=== PATIENT | male | born 1960 | race Caucasian/White ===

== ENCOUNTER 2017-01-22 08:22 | Day surgery (SDC) | payer BC ==
[2017-01-21 13:39] LABS: BASOPHILS 0.5 %; BASOPHILS ABSOLUTE 0.03 10/3/uL (0.0-0.16); EOSINOPHILS 6.2 %; EOSINOPHILS ABSOLUTE 0.34 10/3/uL (0.0-0.53); HEMATOCRIT 43.8 % (40.0-51.0); HEMOGLOBIN 14.8 g/dL (13.6-17.8); IMMATURE GRANULOCYTES 0.2 %; IMMATURE GRANULOCYTES ABSOLUTE 0.01 10/3/uL (0.0-0.11); LYMPHOCYTES 35.7 %; LYMPHOCYTES ABSOLUTE 1.96 10/3/uL (0.67-4.30); MEAN CORPUS HGB CONC 33.8 g/dL (32.0-36.0); MEAN CORPUSCULAR HEMOGLOB 32.8 pg (26.0-34.0); MEAN CORPUSCULAR VOLUME 97.1 fL (80-100); MEAN PLATELET VOLUME 9.3 fL (9.2-13.0); MONOCYTES 16.8 %; MONOCYTES ABSOLUTE 0.92 10/3/uL (0.21-1.20); NEUTROPHILS 40.6 %; NEUTROPHILS ABSOLUTE 2.23 10/3/uL (2.02-8.40); PLATELET COUNT 277 10/3/uL (150-400); RBC DISTRIBUTION WIDTH 12.9 % (12.0-16.0); RED CELL COUNT 4.51 10/6/uL (4.7-6.1); WHITE BLOOD CELLS 5.5 10/3/uL (4.5-10.5)
[2017-01-21 13:40] LABS: MANUAL DIFF NO %
[2017-01-21 13:44] LABS: PARTIAL THROMBO TIME 29.8 SEC (22.5-37.2); PROTIME (NOT ORD) 12.9 SEC (12.0-14.5)
[2017-01-21 13:56] LABS: A/G RATIO 1.1 (0.7-1.9); ALBUMIN 3.7 G/DL (3.5-5.0); BUN (BLOOD UREA NITROGEN) 15 MG/DL (6-23); CALCIUM, SERUM 8.7 MG/DL (8.5-10.4); CHLORIDE, SERUM 105 MMOL/L (96-112); CO2 (CARBON DIOXIDE) 29 MMOL/L (24-34); CREATININE 0.97 MG/DL (0.70-1.30); GFR AFRICAN AMERICAN 99 ML/MIN (>=60); GFR NON AFRICAN AMERICAN 86 ML/MIN (>=60); GLOBULIN 3.4 G/DL (2.5-4.1); GLUCOSE, SERUM 100 MG/DL (60-99); POTASSIUM, SERUM 5.1 MMOL/L (3.5-5.3); SGOT(AST) 28 U/L (5-40); SGPT(ALT) 51 U/L (5-65); SODIUM, SERUM 143 MMOL/L (135-148); TOTAL PROTEIN 7.1 G/DL (6.0-8.5)
[2017-01-21 13:57] LABS: ALKALINE PHOSPHATASE 123 U/L (45-117); TOTAL BILIRUBIN 0.4 MG/DL (0-1.2)
--- NOTE | ~2017-01-22 | OP ---
Record Of Operation [facility] [address] [place]. [address] NAME: STEPHY KO : 58 STATUS : [facility]#: [id number] AGE: 57 ADM/REG DATE : 01/22/17 MR#: [id number] REPORT SERV DATE: 01/22/17 DICTATED BY: NARINDER NICHOLS III DATE: 01/22/17 REPORT STATUS : Draft TRANSCRIBED BY: MODMitesh DATE: 01/22/17 DATE OF PROCEDURE: 01/22/2017 PREOPERATIVE DIAGNOSIS: Large inguinoscrotal hernia on the left side, which was incarcerated, but not strangulated. POSTOPERATIVE DIAGNOSIS: Large inguinoscrotal hernia on the left side, which was incarcerated, but not strangulated plus the finding of a large cord lipoma with a pantaloon type hernia defect, more indirect component than direct, but clearly bulging in the transversalis fascia as well as a large hernia with sigmoid colon content. PROCEDURE: Exploration repair and reduction of a left scrotal inguinal hernia with excision of a large cord lipomas that were multiple and repair using an onlay mesh with a modified Claude type repair. The approach was opened, the hernia was direct and indirect with indirect being the more prominent aspect. It was a clean case, mesh used was TiMesh light 10 x 15 cm, reference #[id number], lot #[id number], expiration . MACHINE PRINTER HOSE: Supriya Nichols RN, [facility]. ANESTHESIA: General with endotracheal tube supplemented with 0.5% Marcaine with epinephrine as a left inguinal block blocking the ilioinguinal and iliopubic nerves. PROCEDURE IN DETAIL: The patient was prepped and draped in routine fashion and time-out called. All were in accord with the side being the left side and repair, and no known allergies. Since there were no dissenting opinions, procedure proceeded. Marking pen was used to delineate a transverse incision in the left inguinal area and sharp dissection used. The tissues were very distorted due to the very large hernia mass that was present and this was dissected out in a tedious fashion. A lot of fatty tissue was encountered, stuck to the external oblique fascia as well as to the cord externally. The external oblique fascia was incised and dissected superiorly and inferiorly to allow for approach to the spermatic cord and hernia sac itself. The cord was mobilized and controlled with a quarter-inch [place] drain. Large hernia sac was identified and dissected preserving the spermatic artery and vein and vas deferens. A large amount of cord lipomatous changes were noted and this was removed using cautery and 3-0 Vicryl ties where appropriate. The sac was dissected for a dissection and explored internally. The colon was stuck to the side with a few adhesions that were taken down with sharp dissection and the sigmoid colon returned to the peritoneal cavity without difficulty. A double pursestring of 2-0 Prolene was then used and the neck of the hernia, which was approximately 3.5 cm in diameter. This double pursestring was then tied down. The sac trimmed away. The spermatic cord was then skeletonized, preserving the blood supply and vas deferens taking several areas of cord lipoma and submitting them to Pathology. After the cord had been completely skeletonized, good hemostasis noted. Attention was drawn to the area of the Record Of Operation [address] [address] NAME: STEPHY KO : 58 STATUS : [facility] PAT#: [id number] AGE: 57 ADM/REG DATE : 01/22/17 MR#: [id number] REPORT SERV DATE: 01/22/17 DICTATED BY: NARINDER NICHOLS III DATE: 01/22/17 REPORT STATUS : Draft TRANSCRIBED BY: SOURAV DATE: 01/22/17 floor. Dissection clearing out the area of the shelving portion of the iliopubic tract and inguinal ligament as well as the lateral border of the rectus sheath medially were accomplished. The bulging transversalis fascial floor was imbricated with a 2-0 Prolene suture diminishing the bulge, facilitating the implantation of mesh. The TiMesh was then secured as an apical stitch of 0 Nurolon was placed through the symphysis pubis, periosteum, and inguinal ligament as well as Kenneth's ligament. Further sutures were placed as simple sutures all the way up the side securing the mesh to the inguinal ligament, shelving portion of the iliopubic tract. An internal ring was reconstructed allowing the spermatic cord to exit approximately 10 cm above the symphysis and the mesh was secured on either side using the 0 Nurolon recreating the ring internally. After this was completed, the mesh was secured along the inguinal ligament up to the internal oblique fascia and transversalis fascia where maryann were used to secure the mesh superiorly. Sutures were used along the rectus border on the left side securing the TiMesh to the rectus sheath border. Good closure and floor coverage was accomplished. Reinforcement of the more superior implantation of the mesh was accomplished with hernia staplers 4.8 mm staple height. After this was done and all areas checked, good hemostasis noted and irrigation completed. The external oblique fascia was then closed with a running suture of 2-0 Vicryl above the level of the spermatic cord creating a new external ring distally. All areas checked. The subcutaneous tissue was again irrigated closed in two layers with interrupted 3-0 Vicryl. The skin was closed with running 4-0 Monocryl. The wound was then dressed with Telfa and Tegaderm and procedure concluded. Estimated blood loss was 10 mL. There were no complications. The patient tolerated the procedure well. THAI/SOURAV Narinder Nichols III, M.D. / [id number] CC: Maximo Roberson III, M.D.
--- NOTE | ~2017-01-22 | PREOPHP ---
PreOp History and Physical [address] [place]. [address] NAME: STEPHY KO : 58 [place] : [place] [facility] [place] [id number] AGE: 57 ADM/REG DATE : MR#: [id number] REPORT SERV DATE: 01/22/17 DICTATED BY: NARINDER NICHOLS III DATE: 01/16/17 REPORT STATUS : Draft TRANSCRIBED BY: MODMitesh DATE: 01/16/17 ADMISSION HISTORY AND PHYSICAL The patient to be admitted for day surgery, 01/22/2017, 10 o'clock procedure. HISTORY OF PRESENT ILLNESS: The patient is a 57-year-old white male, admitted with about a two-week history of pain and bulge in the left inguinal area. It seems to be worse after he has been on his feet all day and at the end of the day. He had an evaluation 15 years or better ago, at which time, he was noted to have a dilated left inguinal external ring, but no true hernia and had been asymptomatic until present illness developed. He denies any trouble with bowel movements or urination. He has Crohn's disease per biopsy done seven years ago and has been on Pentasa as his therapy and well controlled. He denies any real acute flare-ups of his Crohn's. 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 The patient has a history of the aortic arch issue which is followed Dr. Tran as a card setter. He also has a history of sleep apnea. MEDICATIONS: The patient's current medications include 81 mg aspirin daily, atorvastatin 40 mg daily, benazepril 10 mg daily, diclofenac p.r.n., Pentasa 500 mg daily, cetirizine 10 mg daily, coenzyme Q10 of 100 mg daily, and Flexeril p.r.n. SOCIAL HISTORY: He is , moderate alcohol user. Quit smoking in 1988. Never uses illegal drugs. 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 PAST FAMILY HISTORY: Lung cancer and coronary artery disease in his father. He also from pneumonia. SOCIAL HISTORY: The patient is active, kayaking and hiking. REVIEW OF SYSTEMS: Consistent with a history of some general good health. Does wear glasses. He has gotten some tinnitus in his ears and history of intermittent wheezing, especially with allergies. He has had a colonoscopy in 2015 that was without significance. He has increased urination of late, history of kidney stones, history of joint pain and stiffness, and history of weakness in muscles and joints primarily with age. He denies other issues of his neurologic, endocrine, or psychiatric review of systems. ALLERGY: His only allergy listed as poison nico. PHYSICAL EXAMINATION: GENERAL: The patient is a well developed, well nourished, normal-appearing white male, in no acute distress. VITAL SIGNS: His height is 5 feet 7 inches tall, blood pressure 120/88, weight 187 pounds, PreOp History and Physical [address] [address] NAME: STEPHY KO : 58 STATUS : PRE [facility]#: [id number] AGE: 57 ADM/REG DATE : MR#: [id number] REPORT SERV DATE: 01/22/17 DICTATED BY: NARINDER NICHOLS III DATE: 01/16/17 REPORT STATUS : Draft TRANSCRIBED BY: SOURAV DATE: 01/16/17 heart rate 64, respirations 17. HEENT: Unremarkable. NECK: Supple. His thyroid was not enlarged. His sclerae were nonicteric. Conjunctivae and lids were normal. He had a reasonably normal conversational hearing, with no abnormalities of the external ears, nose, or mouth. CHEST: Clear from anterior to posterior with normal respiratory effort and good auscultation clearance. HEART: With a regular rate and rhythm. No bruits or murmurs. His carotids were without abnormal sounds. ABDOMEN: Without significant tenderness at this time, but he has a significant left inguinal hernia that is scrotal and reducible only with the patient lying down with gentle pressure of over two- to three-minute reducing time. The mass effect was significant with the hernia in the superior scrotal sac. There was of minimal tenderness noted. His right inguinal area was unremarkable with no bulge or hernia change, no tenderness. His scrotum showed no other abnormalities other than the hernia change on the left and penis was unremarkable. His groin and had no lymphadenopathy. NEURO: Gait AND station were normal. SKIN: Unremarkable. Cranial nerves unremarkable. He was oriented x3. PSYCH: Mood, affect, judgment, and memory were unremarkable. IMPRESSION: The patient has a scrotal left inguinal hernia that is barely reducible. 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 He has history of essential hypertension, controlled on medications. RECOMMENDATION: The patient to avoid any lifting, and I have recommended open repair with mesh since this is such a wide neck and the scrotal component would make an open repair more durable for the patient in the long run. Risk of surgery including recurrence of infection, bleeding, rejection of mesh, erosion of mesh, bowel injury, bladder injury, blood vessel injury, or postop bowel obstruction; all were mentioned to the patient as risk. There is a moderate risk of complications, but certainly, there is indication for repair since the patient is symptomatic with a large scrotal hernia which is enlarging. RB/PIPOL Narinder Nichols III, M.D. / [id number] CC: Maximo Roberson III, M.D. PreOp History and Physical [address] [address] NAME: STEPHY KO : 58 [place] : [place] [facility] [place] [id number] AGE: 57 ADM/REG DATE : MR#: [id number] REPORT SERV DATE: 01/22/17 DICTATED BY: NARINEDR NICHOLS III DATE: 01/16/17 REPORT STATUS : Draft TRANSCRIBED BY: MODL DATE: 01/16/17 Ari Zarate M.D.
[~2017-01-22 08:22] MED LIST: ASAB PO; CO Q-10100 MG PO; LIPITOR40 PO; LOTE10 PO; PENTASA500 MG PO; ZYRTEC ALLGY10 MG PO
== END 2017-01-22 16:25 | disposition home or self-care (01) ==
LOC: SDC 08:22
PROVIDERS: Surgery
PROC: 0VBG0ZX Excision of Left Spermatic Cord, Open Approach, Diagnostic (ICD-10-PCS; 2017-01-22)
PROC: 0YU60JZ Supplement Left Inguinal Region with Synthetic Substitute, Open Approach (ICD-10-PCS; principal; 2017-01-22 09:45)
DX: K40.30 Unilateral inguinal hernia, with obstruction, without gangrene, not specified as recurrent (principal); I10 Essential (primary) hypertension; E78.00 Pure hypercholesterolemia, unspecified; G47.33 Obstructive sleep apnea (adult) (pediatric); K50.90 Crohn's disease, unspecified, without complications; Z79.82 Long term (current) use of aspirin; Z79.899 Other long term (current) drug therapy; Z98.890 Other specified postprocedural states
CPT/HCPCS: 36415; 80053; 85025; 85610; 85730; 88304; 93005; A9270-GY; C1781; J0690; J1652; J1885; J2250; J2270; J2405; J2710; J3010